=== PATIENT | male | born 2000 | race Caucasian/White ===

== ENCOUNTER 2020-07-26 11:19 | Emergency (ER) | payer MEDICAID ==
[~2020-07-26] VITALS: Ht 182.9 cm; Wt 117.9 kg
[2020-07-26 11:41] VITALS: BP 142/83; Ht 182.9 cm; Wt 117.9 kg
== END 2020-07-26 12:46 | disposition home or self-care (01) ==
LOC: ED 11:19
DX: S93.401A Sprain of unspecified ligament of right ankle, initial encounter (principal); X50.1XXA Overexertion from prolonged static or awkward postures, initial encounter; Y93.67 Activity, basketball; Y92.310 Basketball court as the place of occurrence of the external cause; Y99.8 Other external cause status

== ENCOUNTER 2020-07-29 11:00 | Emergency (ER) | payer MEDICAID ==
[~2020-07-29] VITALS: Ht 182.9 cm; Wt 117.9 kg
[2020-07-29 11:05] VITALS: BP 147/75; Ht 182.9 cm; Wt 117.9 kg
== END 2020-07-29 11:59 | disposition home or self-care (01) ==
LOC: ED 11:00
DX: S92.101D Unspecified fracture of right talus, subsequent encounter for fracture with routine healing (principal); J45.909 Unspecified asthma, uncomplicated; X58.XXXD Exposure to other specified factors, subsequent encounter

== ENCOUNTER 2020-08-09 11:46 | Emergency (ER) | payer MEDICAID ==
[~2020-08-09] VITALS: Ht 185.4 cm; Wt 117.5 kg
[2020-08-09 11:59] VITALS: Ht 185.4 cm; Wt 117.5 kg
[2020-08-09 12:45] VITALS: BP 135/84
== END 2020-08-09 12:45 | disposition home or self-care (01) ==
LOC: ED 11:46
DX: M25.571 Pain in right ankle and joints of right foot (principal); J45.909 Unspecified asthma, uncomplicated; Z02.79 Encounter for issue of other medical certificate; X50.1XXD Overexertion from prolonged static or awkward postures, subsequent encounter